=== PATIENT | male | born 1990 | race Two or more races ===

== ENCOUNTER → 2024-04-07 | Emergency (ER) | payer OTHER ==
[~2024-04-07] VITALS: Ht 170.2 cm; Wt 81.6 kg
[2024-04-08 00:57] LABS: HEMATOCRIT 41.1 % (39.0-48.0); MEAN CORPUSCULAR HEMOGLOBIN 30.4 pg (27.00-32.0); MEAN CORPUSCULAR HGB CONC 34.1 g/dl (32.0-36.0); PLATELET COUNT 223 K/uL (150-450); RED BLOOD COUNT 4.62 M/uL (4.00-6.00)
== END | disposition left against medical advice (07) ==
LOC: ER 20:28
PROVIDERS: Preventive Medicine Public Health & General Preventive Medicine
DX: R50.9 Fever, unspecified (principal); Z20.822 Contact with and (suspected) exposure to COVID-19